=== PATIENT | female | born 2000 | race Caucasian/White ===

== ENCOUNTER 2023-08-30 15:53 | Outpatient (CLI) | payer OTHER | END 2023-08-30 15:54 | disposition home or self-care (01) | LOC: SCSPT 15:53 → SCSRAD 15:54 | PROVIDERS: ATTEND Chiropractor | DX: M43.16 Spondylolisthesis, lumbar region (principal); M43.27 Fusion of spine, lumbosacral region | CPT/HCPCS: 72120 ==